=== PATIENT | male | born 1980 | race Two or more races ===

== ENCOUNTER 2021-10-13 10:38 | Emergency (ER) | payer OTHER ==
[2021-10-13 10:43] VITALS: BP 108/71; PULSE 68; RESP 18; TEMP 97.8; BMI 24.3
[2021-10-13] MEDS ORDERED: IBUPROFEN 600 MG TABLET (FP) PO ONE ×2 (11:24→11:30)
== END 2021-10-13 12:15 | disposition home or self-care (01) ==
LOC: JER 10:38 → JERFT 10:38
DX: M79.671 Pain in right foot (principal)
CPT/HCPCS: 73630-TC-RT-FY; 99284-25